=== PATIENT | female | born 1985 | race American Indian/Alaskan Native ===

== ENCOUNTER 2018-06-09 13:26 | Emergency (ER) | payer SELFPAY ==
[2018-06-09] MEDS ORDERED: BOOSTRIX IM ONE (14:05)
[2018-06-09] MEDS ORDERED: VANCOMYCIN/NS 1 GM/250 ML 1 GM/250 ML BAG IV ONE (14:14)
[2018-06-09] MEDS ORDERED: NACL 0.9% 1000 ML 1,000 ML IV ONE (14:15)
[2018-06-09] MEDS ORDERED: ZOFRAN IV ONE (14:15)
[2018-06-09] MEDS ORDERED: MORPHINE IV ONE (14:15)
[2018-06-09] MEDS ORDERED: XYLOCAINE 2%/ EPI 1:200,000 INFILTRATI ONE (15:27)
[2018-06-09] MEDS ORDERED: NORCO 5/325 PO ONE (15:46)
[2018-06-09] MEDS ORDERED: XYLOCAINE TOPICAL 5% TP ONE (16:00)
--- NOTE | 2018-06-09 16:49 | Emergency Department Report ---
Upper Extremity - HPI Chief Complaint: Extremity Injury, Upper Stated Complaint: RT THUMB CUT OFF Time Seen by Provider: 06/09/18 14:05 Upper Extremity: Right Thumb Occurred When: Today Mechanism: Crush Symptoms: Yes Deformity, Yes Laceration or Abrasion (distal tip of right thumb amputated) Other History: patient states right thumb got caught in a door at 4 am, and distal tip got amputated, including all nailbed. She went to work this am, but pain was too much, so she came to er. bleeding has gotten better, pain is 10/10, sharp, radiating down her right hand, no redness, no drainage, good range of motion. she is right hand dominant. ED Review of Systems ROS: Stated complaint: RT THUMB CUT OFF Other details as noted in HPI Comment: All other systems reviewed and negative Respiratory: denies: cough, orthopnea Cardiovascular: denies: chest pain, palpitations Musculoskeletal: other (distal tip of right thumb amputated) ED Past Medical Hx - Past Medical History Previous Medical History?: Yes Hx Hypertension: Yes Hx Congestive Heart Failure: No Hx Diabetes: No Hx Deep Vein Thrombosis: No Hx Renal Disease: No Hx Sickle Cell Disease: No Hx Arthritis: Yes Hx Seizures: No Hx Psychiatric Treatment: Yes (depression bipolar) Hx Asthma: No Hx COPD: No Hx HIV: No - Surgical History Past Surgical History?: Yes Additional Surgical History: tubal ligation - Social History Smoking Status: Current Every Day Smoker Substance Use Type: Alcohol - Medications Home Medications: Home Medications Medication Instructions Recorded Confirmed Last Taken Type Sertraline [Zoloft] 1 tab PO DAILY 07/05/14 02/09/16 03/01/15 History Methadone [Dolophine] 10 mg PO HS 02/25/15 02/09/16 02/28/15 History Ibuprofen [Motrin] 800 mg PO Q8HR PRN #30 tablet 02/09/16 Unknown Rx traMADol [Ultram 50 MG tab] 50 mg PO Q6HR PRN #20 tablet 02/09/16 Unknown Rx Upper Extremity Exam - Exam General: Vital signs noted. No distress. Alert and acting appropriately. Head and Torso: No HEENT Abnormality, No Neck Tenderness Shoulder Exam: No Shoulder Tenderness, No Clavicle Tenderness Arm Exam: No Arm/Humerus Tenderness, No Arm Deformity Elbow: No Elbow Tenderness, No Normal Range of Motion in Elbow, No Elbow Deformity Forearm: No Forearm Tenderness, No Forearm Deformity, No Pain with Pronation, No Pain with Supination Wrist: Yes Pain with Axial Thumb Compression, No Wrist Tenderness, No Normal ROM in Wrist, No Wrist Deformity, No Snuffbox Tenderness Hand: Yes Hand Tenderness (right distal tip of thumb amputated incl nail bed), Yes Digit Tenderness, Yes Normal ROM in Digit(s), Yes Digit(s) Deformity, Yes Tendon Dysfunction CMS Exam: Yes Broken Skin (right thumb), Yes Normal Capillary Refill, Yes Normal Distal Sensation ED Course Vital Signs 06/09/18 06/09/18 06/09/18 13:35 14:58 15:09 Temperature 98.1 F Pulse Rate 130 H Respiratory 20 16 18 Rate Blood Pressure 143/97 O2 Sat by Pulse 96 96 Oximetry - Reevaluation(s) Reevaluation #1: 06/09/18 18:50 received vanc 1 gm, tetanus, morphine, norco. spoke with Dr. Du, he recommended against putting nailbed/distal thumb back in place. patient is requesting to see hand surgeon, I called [facility], Dr. Negro will see patient as an er to er txfr. I loosely suture the proximal thumb wound to help with bleeding. - Laceration /Wound Repair Right Hand Wound Location: upper extremity Wound's Depth, Shape: nail-avulsed Wound Explored: clean Betadine Prep?: Yes Anesthesia: 1% Lidocaine Wound Debrided: extensive Suture Size/Type: 4:0 Number of Sutures: 5 Layer Closure?: No (loosely closed amputated finger ) Number Deep Layer Sutures: 1 Sterile Dressing Applied?: Yes ED Medical Decision Making - Medical Decision Making patient to be transferred to [facility] for hand surgery evaluation. - Differential Diagnosis amputated finger Critical care attestation.: If time is entered above; I have spent that time in minutes in the direct care of this critically ill patient, excluding procedure time. ED Disposition Clinical Impression: Traumatic amputation of fingertip Qualifiers: Encounter type: initial encounter Qualified Code(s): S68.119A - Complete traumatic metacarpophalangeal amputation of unspecified finger, initial encou nter Disposition: DC/TX-70 ANOTHER TYPE HLTHCARE Is pt being admited?: No Does the pt Need Aspirin: No Condition: Stable Referrals: PRIMARY CARE, [Primary Care Provider] - 3-5 Days
--- NOTE | 2018-06-09 16:49 | XRay Report ---
FINAL REPORT PROCEDURE: XR HAND 3+V RT TECHNIQUE: RIGHT hand radiographs, AP, lateral, and oblique views. CPT 56063-KQ HISTORY: right thumb distal tip mangled injury COMPARISON: No prior studies are available for comparison. FINDINGS: Fracture (s) and/or Dislocation(s): No obvious fracture is identified. The tip of the 1st terminal ph alangeal tuft appears to be exposed.. Alignment: Normal . Joint space(s): Normal . Soft tissues: There is evidence of soft tissue loss involving the terminal portion of the 1st finger. Bone mineralization: Normal . Foreign bodies: None . IMPRESSION: First terminal phalangeal soft tissue injury. No obvious bony or joint injury..
[2018-06-09 18:45] VITALS: BP 140/93
== END 2018-06-09 18:55 | disposition other institution (70) ==
LOC: ED 13:26
DX: S68.119A Complete traumatic metacarpophalangeal amputation of unspecified finger, initial encounter (principal); S61.101A Unspecified open wound of right thumb with damage to nail, initial encounter; X58.XXXA Exposure to other specified factors, initial encounter; Y93.89 Activity, other specified; Y92.89 Other specified places as the place of occurrence of the external cause; Y99.8 Other external cause status
CPT/HCPCS: 11730; 73130; 90471; 90715; 96365; 96375; 99284; J2270; J2405; J3370; J7030

== ENCOUNTER 2019-06-15 16:25 | Emergency (ER) | payer SELFPAY ==
--- NOTE | 2019-06-15 16:59 | Event Note ---
ED Screening Note Date of service: 06/15/19 Time: 16:55 ED Screening Note: Pt complains of diffuse all over muscle spasms x 1 year, chest pain x 1 week, and gout pain in right foot x 1 year This initial assessment/diagnostic orders/clinical plan/treatment(s) is/are subject to change based on patients health status, clinical progression and re- assessment by fellow clinical providers in the ED. Further treatment and workup at subsequent clinical providers discretion. Patient/guardian urged not to elope from the ED as their condition may be serious if not clinically assessed and managed. Initial orders include: labs EKG
--- NOTE | 2019-06-15 22:46 | XRay Report ---
CHEST 2 VIEWS, 06/15/2019 10:27 PM INDICATION: Chest pain COMPARISON: None FINDINGS: Support devices: None Heart: The cardiac silhouette is normal in size. Lungs/pleura: The lungs are well expanded and appear clear of focal airspace disease or significant p leural effusion. Additional findings: Evaluation of bony structures demonstrates no evidence of acute bony abnormality . IMPRESSION: 1. No evidence of acute cardiopulmonary process. Signer Name: Ramya Peters MD Signed: 06/15/2019 10:42 PM Workstation Name: [id number]
[2019-06-15] MEDS ORDERED: KETOROLAC 60 MG/2 ML INJ IM ONE (23:32)
[2019-06-15] MEDS ORDERED: dexAMETHasone 20 MG/5 ML VIAL IM ONE (23:32)
[2019-06-15] MEDS ORDERED: HYDROcodone/ACETAMINOPHEN 7.5-325MG TAB PO ONE (23:33)
[2019-06-15] MEDS ORDERED: ONDANSETRON 4 MG ODT TAB PO ONE (23:33)
--- NOTE | 2019-06-16 01:17 | Emergency Department Report ---
ED General Adult HPI - General Chief complaint: Pain General Stated complaint: BACK PAIN, BODY ACHES AND CHEST PAIN Time Seen by Provider: 06/15/19 16:55 Source: patient Mode of arrival: Ambulatory Limitations: No Limitations - History of Present Illness Initial comments: Patient is a 34-year-old -[place] Citizen female with a history of chronic gouty arthropathy and chronic osteoarthritis who presents to the ED with acute exacerbation of her chronic joint pains characterized by right foot pain, bilateral hand pain, low back pain as well as pleuritic chest wall pain for the last 2 weeks. Patient denies shortness of breath, traumatic injury, dizziness, fever, chills, nausea, vomiting, abdominal pain, dysuria, urinary frequency and urgency or traumatic injury and fall. 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 MD Complaint: diffuse bilateral hand, back and right foot pain; pleuritic chest wall pain -: Gradual, year(s) (1) Location: chest, back (lower), upper extremity (bilateral hand pains), lower extremity (right foot) Radiation: non-radiation Severity scale (0 -10): 6 Quality: aching, sharp Consistency: constant Improves with: none Worsens with: none Associated Symptoms: denies other symptoms, chest pain (pleuritic). denies: confusion, cough, diaphoresis, fever/chills, headaches, loss of appetite, malaise, nausea/vomiting, rash, seizure, shortness of breath, syncope, weakness Treatments Prior to Arrival: none - Related Data Home Medications Medication Instructions Recorded Confirmed Last Taken Sertraline [Zoloft] 1 tab PO DAILY 07/05/14 02/09/16 03/01/15 Methadone [Dolophine] 10 mg PO HS 02/25/15 02/09/16 02/28/15 Previous Rx's Medication Instructions Recorded Last Taken Type Ibuprofen [Motrin] 800 mg PO Q8HR PRN #30 tablet 02/09/16 Unknown Rx Ibuprofen [Motrin] 600 mg PO Q8H PRN #30 tablet 06/16/19 Unknown Rx methOCARBAMOL [Robaxin TAB] 750 mg PO Q8H PRN #30 tablet 06/16/19 Unknown Rx predniSONE [Deltasone] 60 mg PO QDAY #15 tab 06/16/19 Unknown Rx traMADoL [Ultram 50 MG tab] 50 mg PO Q6HR PRN #12 tablet 06/16/19 Unknown Rx Allergies Allergy/AdvReac Type Severity Reaction Status Date / Time No Known Allergies Allergy Verified 02/25/15 11:14 ED Review of Systems ROS: Stated complaint: BACK PAIN, BODY ACHES AND CHEST PAIN Other details as noted in HPI Constitutional: denies: chills, fever Eyes: denies: eye pain, eye discharge, vision change ENT: denies: ear pain, throat pain Respiratory: denies: cough, shortness of breath, wheezing Cardiovascular: chest pain (pleuritic chest wall pain). denies: palpitations Endocrine: no symptoms reported Gastrointestinal: denies: abdominal pain, nausea, diarrhea Genitourinary: denies: urgency, dysuria, discharge Musculoskeletal: back pain (low back pain), arthralgia (bilateral hand pain, right foot pain), myalgia. denies: joint swelling Skin: denies: rash, lesions, change in color, change in hair/nails Neurological: denies: headache, weakness, paresthesias Psychiatric: denies: anxiety, depression Hematological/Lymphatic: denies: easy bleeding, easy bruising ED Past Medical Hx - Past Medical History Previous Medical History?: Yes Hx Hypertension: Yes Hx Congestive Heart Failure: No Hx Diabetes: No Hx Deep Vein Thrombosis: No Hx Renal Disease: No Hx Sickle Cell Disease: No Hx Arthritis: Yes Hx Seizures: No Hx Psychiatric Treatment: Yes (depression bipolar) Hx Asthma: No Hx COPD: No Hx HIV: No - Surgical History Past Surgical History?: Yes Additional Surgical History: tubal ligation - Social History Smoking Status: Current Every Day Smoker Substance Use Type: Alcohol, Marijuana - Medications Home Medications: Home Medications Medication Instructions Recorded Confirmed Last Taken Type Sertraline [Zoloft] 1 tab PO DAILY 07/05/14 02/09/16 03/01/15 History Methadone [Dolophine] 10 mg PO HS 02/25/15 02/09/16 02/28/15 History Ibuprofen [Motrin] 800 mg PO Q8HR PRN #30 tablet 02/09/16 Unknown Rx Ibuprofen [Motrin] 600 mg PO Q8H PRN #30 tablet 06/16/19 Unknown Rx methOCARBAMOL [Robaxin TAB] 750 mg PO Q8H PRN #30 tablet 06/16/19 Unknown Rx predniSONE [Deltasone] 60 mg PO QDAY #15 tab 06/16/19 Unknown Rx traMADoL [Ultram 50 MG tab] 50 mg PO Q6HR PRN #12 tablet 06/16/19 Unknown Rx ED Physical Exam - General Limitations: No Limitations General appearance: alert, in no apparent distress - Head Head exam: Present: atraumatic, normocephalic, normal inspection - Eye Eye exam: Present: normal appearance, PERRL, EOMI - ENT ENT exam: Present: normal exam, normal orophraynx, mucous membranes moist, TM's normal bilaterally, normal external ear exam - Neck Neck exam: Present: normal inspection, full ROM - Respiratory Respiratory exam: Present: normal lung sounds bilaterally, chest wall tenderness. Absent: respiratory distress, wheezes, rales, rhonchi, accessory muscle use, decreased breath sounds - Cardiovascular Cardiovascular Exam: Present: regular rate, normal rhythm, normal heart sounds. Absent: bradycardia, tachycardia, irregular rhythm, systolic murmur, diastolic murmur, rubs, gallop - GI/Abdominal GI/Abdominal exam: Present: soft, normal bowel sounds. Absent: tenderness, guarding, hyperactive bowel sounds - Extremities Exam Extremities exam: Present: normal inspection, full ROM, tenderness (bilateral hand tenderness; right foot tenderness), normal capillary refill. Absent: pedal edema, joint swelling, calf tenderness - Back Exam Back exam: Present: normal inspection, full ROM, tenderness (palpable lumbosacral paraspinal musculoskeletal tenderness), muscle spasm, paraspinal tenderness - Neurological Exam Neurological exam: Present: alert, oriented X3, CN II-XII intact, normal gait, reflexes normal - Psychiatric Psychiatric exam: Present: normal affect, normal mood - Skin Skin exam: Present: warm, dry, intact, normal color. Absent: rash ED Course Vital Signs 06/15/19 06/15/19 06/15/19 16:36 23:52 23:55 Temperature 98.4 F Pulse Rate 84 Respiratory 18 16 16 Rate Blood Pressure 163/90 O2 Sat by Pulse 100 Oximetry ED Medical Decision Making - Medical Decision Making This is 34-year-old female with a history of chronic pain characterized by diffuse polyarticular joint pains, low back pain, pleuritic chest pain and right foot pain for the last 2 weeks. In the ED, patient is alert and oriented 3 and is not in distress. Lab test results were reviewed and are nonactionable. Patient was treated for pain and on reevaluation, pain is well-controlled with medications. Patient was discharged home on medications and advised to follow- up with her primary care physician in 7-10 days for reevaluation or return to the ED immediately if symptoms get worse. - Differential Diagnosis chronic pain; chronic osteoarthritis; chronic gout; muscle spasm Critical care attestation.: If time is entered above; I have spent that time in minutes in the direct care of this critically ill patient, excluding procedure time. ED Disposition Clinical Impression: Chronic pain syndrome, Polyarticular arthritis, Spasm of muscle of lower back Chronic gout Qualifiers: Gout site: foot Gout etiology: idiopathic Laterality: right Presence of tophus: without tophus Qualified Code(s): M1A.0710 - Idiopathic chronic gout, right ankle and foot, without tophus (tophi) Disposition: TO HOME OR SELFCARE Is pt being admited?: No Does the pt Need Aspirin: No Condition: Stable Instructions: Osteoarthritis (ED), Chronic Back Pain (ED), Chronic Pain (ED), Muscle Spasm (ED) Additional Instructions: Take medications with food, drink plenty of fluids and follow-up with your primary care physician in 7-10 days for reevaluation. Return to the ED immediately if symptoms get worse. Prescriptions: predniSONE [Deltasone] 60 mg PO QDAY #15 tab Ibuprofen [Motrin] 600 mg PO Q8H PRN #30 tablet PRN Reason: Pain methOCARBAMOL [Robaxin TAB] 750 mg PO Q8H PRN #30 tablet PRN Reason: Muscle Spasm traMADoL [Ultram 50 MG tab] 50 mg PO Q6HR PRN #12 tablet PRN Reason: Pain Referrals: [facility] [Outside] - 7-10 days Time of Disposition: 01:18 Print Language: ARMENIAN
[2019-06-16 02:42] VITALS: BP 153/82
== END 2019-06-16 01:50 | disposition home or self-care (01) ==
LOC: ED 16:25
DX: M62.830 Muscle spasm of back (principal); M1A.9XX0 Chronic gout, unspecified, without tophus (tophi); M13.0 Polyarthritis, unspecified; I10 Essential (primary) hypertension; F17.200 Nicotine dependence, unspecified, uncomplicated; F12.10 Cannabis abuse, uncomplicated; F10.10 Alcohol abuse, uncomplicated; Z98.51 Tubal ligation status; Z79.899 Other long term (current) drug therapy
CPT/HCPCS: 36415; 71046; 84484; 93005; 93010; 96372; 99284; J1100; J1885; Q0162

== ENCOUNTER 2021-11-08 01:04 | Emergency (ER) | payer SELFPAY | END 2021-11-08 06:38 | disposition left against medical advice (07) | LOC: ED 01:04 | DX: R10.9 Unspecified abdominal pain (principal); Z53.21 Procedure and treatment not carried out due to patient leaving prior to being seen by health care provider ==